=== PATIENT | male | born 1990 | race Hispanic/Latino ===

== ENCOUNTER 2018-08-17 09:44 | Emergency (ER) | payer OTHER ==
--- NOTE | 2018-08-17 10:28 | EDPHYS ---
Physician Documentation [facility] Name: Elmo Landry Age: 28 yrs Sex: Male : 1990 Arrival Date: 08/17/2018 Time: 09:48 Bed 16 Private MD: None, None ED Physician Aram Romero HPI: 08/17 10:05 This 28 yrs old Male presents to ER via Ambulatory with complaints of Sore kb Throat. 10:05 The patient presents with sore throat. The patient describes throat pain as constant. kb Onset: The symptoms/episode began/occurred yesterday. Severity of symptoms: At their worst the symptoms were moderate, in the emergency department the symptoms are unchanged. Modifying factors: The symptoms are alleviated by nothing, the symptoms are aggravated by swallowing, Patient's oral intake status: good Denies contact with similarly ill indivduals. Associated signs and symptoms: Pertinent positives: cough, Sore throat Pertinent negatives chest pain, chills, diarrhea, dysphagia, earache, fever, flu-like symptoms, headache, nausea, rhinorrhea, shortness of breath, vomiting. The patient has not experienced similar symptoms in the past, but family has similar symptoms, son. The patient has not recently seen a physician. Pt reports his son was diagnosed with strep 2 days ago and his throat started hurting yesterday so he wanted to get checked out. 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 - Social history:: Smoking status: Patient/guardian denies using tobacco, Patient/guardian denies using alcohol. - Ebola Screening: : Patient negative for fever greater than or equal to 101.5 degrees Fahrenheit, and additional compatible Ebola Virus Disease symptoms Patient denies exposure to infectious person Patient denies travel to an Ebola-affected area in the 21 days before illness onset. ROS: 10:05 Constitutional: Negative for fever, chills, and weight loss, Cardiovascular: Negative kb for chest pain, palpitations, and edema, Abdomen/GI: Negative for abdominal pain, nausea, vomiting, diarrhea, and constipation, Back: Negative for injury and pain, : Negative for injury, bleeding, discharge, and swelling, MS/Extremity: Negative for injury and deformity, Skin: Negative for injury, rash, and discoloration, Neuro: Negative for headache, weakness, numbness, tingling, and seizure. 10:05 ENT: Positive for sore throat. 10:05 Respiratory: Positive for cough. Exam: 10:05 Constitutional: This is a well developed, well nourished patient who is awake, alert, kb and in no acute distress. Head/Face: Normocephalic, atraumatic. Chest/axilla: Normal chest wall appearance and motion. Nontender with no deformity. No lesions are appreciated. Cardiovascular: Regular rate and rhythm with a normal S1 and S2. No gallops, murmurs, or rubs. Normal PMI, no JVD. No pulse deficits. Respiratory: Lungs have equal breath sounds bilaterally, clear to auscultation and percussion. No rales, rhonchi or wheezes noted. No increased work of breathing, no retractions or nasal flaring. Abdomen/GI: Soft, non-tender, with normal bowel sounds. No distension or tympany. No guarding or rebound. No evidence of tenderness throughout. Skin: Warm, dry with normal turgor. Normal color with no rashes, no lesions, and no evidence of cellulitis. MS/ Extremity: Pulses equal, no cyanosis. Neurovascular intact. Full, normal range of motion. Neuro: Awake and alert, GCS 15, oriented to person, place, time, and situation. Cranial nerves II-XII grossly intact. Motor strength 5/5 in all extremities. Sensory grossly intact. Cerebellar exam normal. Normal gait. 10:05 ENT: Posterior pharynx: Airway: normal, no evidence of obstruction, Tonsils: bilaterally enlarged, with erythema, Uvula: normal, midline, swelling, that is mild, that is moderate, erythema, that is moderate, exudate, is not appreciated. Vital Signs: 09:51 BP 128 / 99; Pulse 76; Resp 18; Temp 97.8(TE); Pulse Ox 100% on R/A; Weight 118.84 kg; hj Height 5 ft. 10 in. (177.80 cm); Pain 5/10; 10:44 BP 128 / 95; Pulse 75; Resp 16 S; Pulse Ox 100% on R/A; jl7 09:51 Body Mass Index 37.59 (118.84 kg, 177.80 cm) MDM: 09:54 Patient medically screened. kb 10:07 Data reviewed: vital signs, nurses notes. Data interpreted: Pulse oximetry: on room air kb is 100 %. Interpretation: normal. Counseling: I had a detailed discussion with the patient and/or guardian regarding: the historical points, exam findings, and any diagnostic results supporting the discharge/admit diagnosis, lab results, the need for outpatient follow up, a family practitioner, to return to the emergency department if symptoms worsen or persist or if there are any questions or concerns that arise at home. 08/17 09:52 Order name: Flu; Complete Time: 10:24 08/17 09:52 Order name: Strep; Complete Time: 10:24 08/17 10:23 Order name: Throat Culture EDMS Administered Medications: No medications were administered Disposition: 08/17/18 10:27 Discharged to Home. Impression: Acute tonsillitis. - Condition is Stable. - Discharge Instructions: Tonsillitis, [id number]. - Prescriptions for Augmentin 875- 125 mg Oral Tablet - take 1 tablet by ORAL route every 12 hours for 7 days; 14 tablet. - Medication Reconciliation Form, Thank You Letter, Antibiotic Education, Prescription Opioid Use form. - Follow up: Emergency Department; When: As needed; Reason: Worsening of condition. Follow up: Private Physician; When: 2 - 3 days; Reason: Recheck today's complaints, Continuance of care, Re-evaluation by your physician. Addendum: 08/19/2018 08:07 Co-signature as Attending Physician, Aram Romero MD I agree with the assessment and k dr plan of care. Signatures: Dispatcher [employer] EDMS Shanda Clark, MATURITY CHECKER-C MATURITY CHECKER-CkAram Up MD MD [facility] John Lacy, DUANE RN Nano Nielsen RN RN jl7 Corrections: (The following items were deleted from the chart) 08/17 10:45 10:27 08/17/2018 10:27 Discharged to Home. Impression: Acute tonsillitis. Condition is jl7 Stable. Forms are Medication Reconciliation Form, Thank You Letter, Antibiotic Education, Prescription Opioid Use. Follow up: Emergency Department; When: As needed; Reason: Worsening of condition. Follow up: Private Physician; When: 2 - 3 days; Reason: Recheck today's complaints, Continuance of care, Re-evaluation by your physician. kb
--- NOTE | 2018-08-17 10:28 | ER ---
Nurse's Notes [facility] Name: Elmo Landry Age: 28 yrs Sex: Male : 1990 Arrival Date: 08/17/2018 Time: 09:48 Bed 16 Private MD: None, None Diagnosis: Acute tonsillitis Presentation: 08/17 09:49 Presenting complaint: Patient states: i have this sore throat that started yesterday, hj my son has it for days too; denies fever and chills; reports cough;. Transition of care: patient was not received from another setting of care. Onset of symptoms was August 17, 2018. Risk Assessment: Do you want to hurt yourself or someone else? Patient reports no desire to harm self or others. Initial Sepsis Screen: Does the patient meet any 2 criteria? No. Patient's initial sepsis screen is negative. Does the patient have a suspected source of infection? No. Patient's initial sepsis screen is negative. Care prior to arrival: None. 09:49 Method Of Arrival: Ambulatory 09:49 Acuity: NATALIYA 4 hj Triage Assessment: 09:50 General: Appears in no apparent distress. uncomfortable, Behavior is calm, cooperative, hj appropriate for age. Pain: Complains of pain in throat. EENT: Reports pain when swallowing. 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 - Social history:: Smoking status: Patient/guardian denies using tobacco, Patient/guardian denies using alcohol. - Ebola Screening: : Patient negative for fever greater than or equal to 101.5 degrees Fahrenheit, and additional compatible Ebola Virus Disease symptoms Patient denies exposure to infectious person Patient denies travel to an Ebola-affected area in the 21 days before illness onset. Screenin:51 Abuse screen: Denies threats or abuse. Has been threatened or abused. Nutritional hj screening: No deficits noted. Tuberculosis screening: No symptoms or risk factors identified. Fall Risk None identified. Assessment: 09:51 Respiratory: Airway is patent Respiratory effort is even, unlabored, Respiratory hj pattern is regular, symmetrical, Breath sounds are clear. EENT: Throat. 10:10 General: Appears in no apparent distress. uncomfortable, Behavior is calm, cooperative, jl7 appropriate for age. Pain: Complains of pain in throat. Neuro: Level of Consciousness is awake, alert, obeys commands, Oriented to person, place, time, situation. Cardiovascular: Patient's skin is warm and dry. Respiratory: Airway is patent Respiratory effort is even, unlabored, Respiratory pattern is regular, symmetrical, Breath sounds are clear bilaterally. EENT: Throat is reddened has enlarged tonsils bilaterally. Derm: Skin is pink, warm \T\ dry. Vital Signs: 09:51 BP 128 / 99; Pulse 76; Resp 18; Temp 97.8(TE); Pulse Ox 100% on R/A; Weight 118.84 kg; hj Height 5 ft. 10 in. (177.80 cm); Pain 5/10; 10:44 BP 128 / 95; Pulse 75; Resp 16 S; Pulse Ox 100% on R/A; jl7 09:51 Body Mass Index 37.59 (118.84 kg, 177.80 cm) ED Course: 09:48 Patient arrived in ED. mr 09:49 None, None is Private Physician. mr 09:50 Shanda Clark [facility]C [facility] kb 09:50 Aram Romero MD is Attending Physician. kb 09:50 Triage completed. hj 09:51 Arm band placed on right wrist. hj 09:51 Patient has correct armband on for positive identification. Bed in low position. Call light in reach. Side rails up X 1. 09:54 Strep Sent. hj 09:54 Flu Sent. hj 10:06 Nano Nielsen, DUANE is Primary Nurse. jl7 10:44 No provider procedures requiring assistance completed. Patient did not have IV access jl7 during this emergency room visit. Administered Medications: No medications were administered Outcome: 10:27 Discharge ordered by . kb 10:44 Discharged to home ambulatory. jl7 10:44 Condition: stable 10:44 Discharge instructions given to patient, Instructed on discharge instructions, follow up and referral plans. medication usage, Demonstrated understanding of instructions, follow-up care, medications, Prescriptions given X 1. 10:45 Patient left the ED. jl7 Signatures: Shanda Clark FNP-C FNP-Ckb Rivera, Mary mr LacyJohn RN RN Nano Cat RN RN jl7 Corrections: (The following items were deleted from the chart) 09:54 09:51 Pulse 76bpm; Resp 18bpm; Pulse Ox 100% RA; Temp 97.8F Temporal; 118.84 kg; Height hj 5 ft. 10 in.; BMI: 37.5; Pain 5/10; hj
== END 2018-08-17 10:45 | disposition home or self-care (01) ==
LOC: ER 09:44
DX: J03.90 Acute tonsillitis, unspecified (principal)
CPT/HCPCS: 87070; 87081; 87804; 99283

== ENCOUNTER 2021-09-09 14:11 | Emergency (ER) | payer OTHER ==
[2021-09-09 15:33] LABS: SARS-COV-2 RT PCR NEGATIVE (NEGATIVE)
--- NOTE | 2021-09-09 16:38 | EDPHYS ---
Physician Documentation [facility] Name: Elmo Landry Age: 31 yrs Sex: Male : 1990 Arrival Date: 09/09/2021 Time: 14:12 Bed 9 Private MD: ED Physician Sanjay Montiel HPI: 09/09 16:33 This 31 yrs old Male presents to ER via Ambulatory with complaints of Flu pm1 Symptoms. 16:33 The patient presents to the emergency department with diarrhea. pm1 16:33 Onset: The symptoms/episode began/occurred 2 day(s) ago. Possible causes: sick pm1 contacts, by family, both sons. The symptoms are aggravated by nothing. The symptoms are alleviated by nothing. Associated signs and symptoms: Pertinent positives: back pain that he attributes to carrying his son yesterday, Pertinent negatives: abdominal pain, fever. Severity of symptoms: in the emergency department the symptoms have improved. The patient has not experienced similar symptoms in the past. The patient has not recently seen a physician. Historical: - Allergies: 14:43 No Known Allergies; patrick - Home Meds: 14:41 ProAir HFA 90 mcg/actuation inhalation HFAA 2 puffs every 4-6 hours [Active]; patrick - PMHx: 14:43 None; patrick - PSHx: 14:41 None; patrick - Immunization history:: Adult Immunizations up to date. - Social history:: Smoking status: Patient denies any tobacco usage or history of. ROS: 16:33 Constitutional: Negative for fever, chills, and weight loss, Cardiovascular: Negative pm1 for chest pain, palpitations, and edema, Respiratory: Negative for shortness of breath, cough, wheezing, and pleuritic chest pain. 16:33 MS/Extremity: Negative for injury and deformity, Skin: Negative for injury, rash, and discoloration, Neuro: Negative for headache, weakness, numbness, tingling, and seizure. 16:33 Abdomen/GI: Positive for diarrhea, Negative for abdominal pain, nausea and vomiting. 16:33 Back: Positive for of the low back area, pain. 16:33 All other systems are negative. Exam: 16:33 Constitutional: This is a well developed, well nourished patient who is awake, alert, pm1 and in no acute distress. Head/Face: Normocephalic, atraumatic. 16:33 Skin: Warm, dry with normal turgor. Normal color with no rashes, no lesions, and no evidence of cellulitis. MS/ Extremity: Pulses equal, no cyanosis. Neurovascular intact. Full, normal range of motion. 16:33 Cardiovascular: Exam negative for acute changes, Rate: normal, Rhythm: regular, Pulses: no pulse deficits are appreciated. 16:33 Respiratory: Exam negative for acute changes, respiratory distress, shortness of breath. 16:33 Neuro: Exam negative for acute changes, Orientation: is normal, Mentation: is normal, Motor: is normal, moves all fours, Gait: is steady, at a normal pace, without difficulty. Vital Signs: 14:39 BP 121 / 73; Pulse 61; Resp 18; Temp 97.2; Pulse Ox 100% ; Weight 117.93 kg; Height 5 patrick ft. 9 in. (175.26 cm); 14:39 Body Mass Index 38.39 (117.93 kg, 175.26 cm) patrick MDM: 15:31 Patient medically screened. pm1 16:33 Data reviewed: vital signs. Data interpreted: Pulse oximetry: on room air is 100 %. pm1 Interpretation: normal. Counseling: I had a detailed discussion with the patient and/or guardian regarding: the historical points, exam findings, and any diagnostic results supporting the discharge/admit diagnosis, lab results, the need for outpatient follow up, to return to the emergency department if symptoms worsen or persist or if there are any questions or concerns that arise at home. 09/09 14:19 Order name: COVID-19/FLU A+B (Document "Date of Onset" if Symptomatic); Complete Time: ld1 15:49 Administered Medications: No medications were administered Disposition: 18:03 Co-signature as Attending Physician, Sanjay Montiel MD. rn Disposition Summary: 09/09/21 16:37 Discharge Ordered Location: Home pm1 Problem: new pm1 Symptoms: have improved pm1 Condition: Stable pm1 Diagnosis - Diarrhea, unspecified pm1 Followup: pm1 - With: Emergency Department - When: As needed - Reason: Worsening of condition Followup: pm1 - With: Private Physician - When: 2 - 3 days - Reason: Recheck today's complaints, Continuance of care, Re-evaluation by your physician Discharge Instructions: - Discharge Summary Sheet pm1 - Food Choices to Help Relieve Diarrhea, Adult pm1 - Diarrhea, Adult pm1 - Viral Gastroenteritis, Adult pm1 Forms: - Medication Reconciliation Form pm1 - Thank You Letter pm1 - Antibiotic Education pm1 - Prescription Opioid Use pm1 Signatures: Dispatcher [employer] EDAlvino Marie PA PA jmm Nieto, Roman, MD MD rn Marinas, Patrick, MAGDALENA YARD DRIVER pm1 Shalonda-Bia Franco RN RN patrick Corrections: (The following items were deleted from the chart) 14: 14:41 Allergies: No Known Allergies; patrick patrick 14: 14:41 Allergies: Amoxicillin; patrick patrick : 14:41 Home Meds: Acyclovir Oral as needed [Inactive]; patrick patrick : 14:41 Home Meds: None; patrick patrick : 14:41 PMHx: herpes smiplex; patrick patrick 14: 14:41 PMHx: None; patrick patrick : 14:41 PSHx: Unable to Obtain; patrick patrick
--- NOTE | 2021-09-09 16:38 | ER ---
Nurse's Notes [facility] Name: Elmo Landry Age: 31 yrs Sex: Male : 1990 Arrival Date: 09/09/2021 Time: 14:12 Bed 9 Private MD: Diagnosis: Diarrhea, unspecified Presentation: 09/09 14:39 Chief complaint: Patient states: diarrhea and backaches. Coronavirus screen: Vaccine patrick status: Patient reports being unvaccinated. Ebola Screen: Patient denies travel to an Ebola-affected area in the 21 days before illness onset. Initial Sepsis Screen: Does the patient meet any 2 criteria? No. Patient's initial sepsis screen is negative. Does the patient have a suspected source of infection? No. Patient's initial sepsis screen is negative. Risk Assessment: Do you want to hurt yourself or someone else? Patient reports no desire to harm self or others. Onset of symptoms was September 07, 2021. 14:39 Method Of Arrival: Ambulatory patrick 14:39 Acuity: NATALIYA 4 patrick Triage Assessment: 15:40 General: Appears in no apparent distress. Behavior is calm, cooperative. Pain: patrick Complains of pain in back. GI: Reports diarrhea. Historical: - Allergies: 14:43 No Known Allergies; patrick - Home Meds: 14:41 ProAir HFA 90 mcg/actuation inhalation HFAA 2 puffs every 4-6 hours [Active]; patrick - PMHx: 14:43 None; patrick - PSHx: 14:41 None; patrick - Immunization history:: Adult Immunizations up to date. - Social history:: Smoking status: Patient denies any tobacco usage or history of. Screenin:40 Abuse screen: Denies threats or abuse. Denies injuries from another. Nutritional patrick screening: No deficits noted. Tuberculosis screening: No symptoms or risk factors identified. Fall Risk None identified. Vital Signs: 14:39 BP 121 / 73; Pulse 61; Resp 18; Temp 97.2; Pulse Ox 100% ; Weight 117.93 kg; Height 5 patrick ft. 9 in. (175.26 cm); 14:39 Body Mass Index 38.39 (117.93 kg, 175.26 cm) patrick ED Course: 14:12 Patient arrived in ED. as 14:41 Triage completed. patrick 15:29 Ambrose Donato NP is PHCP. pm1 15:29 Sanjay Montiel MD is Attending Physician. pm1 15:40 Patient has correct armband on for positive identification. Bed in low position. patrick 15:40 Arm band placed on. patrick 15:40 No provider procedures requiring assistance completed. patrick 17:16 Liss Goss, RN is Primary Nurse. ld1 17:20 Patient did not have IV access during this emergency room visit. ld1 Administered Medications: No medications were administered Outcome: 16:37 Discharge ordered by MD. pm1 17:20 Discharged to home ambulatory, with family. ld1 17:20 Condition: stable 17:20 Discharge instructions given to patient, family, Instructed on discharge instructions, follow up and referral plans. Demonstrated understanding of instructions, follow-up care. 17:20 Patient left the ED. ld1 Signatures: Brittany Bright as Ambrose Donato, MAGDALENA RICKSHAW DRIVER pm1 Liss Goss, RN RN ld1 Bia Clinton RN RN patrick Corrections: (The following items were deleted from the chart) 14:43 14:41 Allergies: No Known Allergies; patrick patrick 14:43 14:41 Allergies: Amoxicillin; patrick patrick 14:43 14:41 Home Meds: Acyclovir Oral as needed [Inactive]; patrick patrick 14:43 14:41 Home Meds: None; patrick patrick 14:43 14:41 PMHx: herpes smiplex; patrick patrick 14:43 14:41 PMHx: None; patrick patrick 14:43 14:41 PSHx: Unable to Obtain; patrick patrick 14:44 14:39 Chief complaint: Patient states: diarrhea Parent and/or Guardian states: diarrhea patrick patrick 14:44 14:39 Pulse 118bpm; Resp 20bpm; Pulse Ox 100%; Temp 97.2F; 36.74 kg; patrick patrick
[2021-09-09 22:49] VITALS: BP 121/73; TEMP 97.2; O2SAT 100
== END 2021-09-09 17:20 | disposition home or self-care (01) ==
LOC: ER 14:11
DX: R19.7 Diarrhea, unspecified (principal); Z20.822 Contact with and (suspected) exposure to COVID-19
CPT/HCPCS: 0240U; 99281